=== PATIENT | female | born 1975 ===

== ENCOUNTER 2020-04-08 19:45 | Outpatient (REF) | payer SELFPAY ==
[2020-04-11 17:21] LABS: COVID-19 RT-PCR Result NEGATIVE (Negative)
== END 2020-04-08 20:05 ==
LOC: NCHCN 19:45
PROVIDERS: PCP Nurse Practitioner Family; Visit Provider Nurse Practitioner Family
DX: Z11.59 Encounter for screening for other viral diseases (principal)
CPT/HCPCS: U0003